=== PATIENT | female | born 1940 | race Caucasian/White ===

== ENCOUNTER 2017-01-04 15:17 | Emergency (ER) | payer MEDICARE ==
[2017-01-04 15:37] VITALS: BP 145/82
--- NOTE | 2017-01-04 16:21 | UC ---
Lower Extremity/Ankle HPI - HPI Summary HPI Summary: Patient presents with left lower leg abnormality with swelling of the left ankle with ecchymosis x 2 days after falling onto the leg 3 days ago. Denies hitting head or LOC. She notes to bruising over the left lower leg with medium size hematoma to the lateral leg. Denies other symptoms. Takes baby aspirin daily. - History of Current Complaint Chief Complaint: UCLowerExtremity Stated Complaint: LEFT FOOT/LEG PAIN & SWELLING Time Seen by Provider: 01/04/17 15:43 Hx Obtained From: Patient ?: No Onset/Duration: Sudden Onset Severity Initially: Mild Severity Currently: Mild Pain Intensity: 0 Pain Scale Used: 0-10 Numeric Aggravating Factor(s): Nothing Alleviating Factor(s): Rest, Elevation, Ice Able to Bear Weight: Yes - Risk Factors Gout Risk Factors: Negative DVT Risk Factors: Negative Septic Arthritis Risk Factor: Negative - Allergies/Home Medications Allergies/Adverse Reactions: Allergies Allergy/AdvReac Type Severity Reaction Status Date / Time No Known Allergies Allergy Verified 01/04/17 15:27 PMH/Surg Hx/FS Hx/Imm Hx Previously Healthy: Yes - Surgical History Surgical History: Yes Surgery Procedure, Year, and Place: BREAST REDUCTION. Left colectomy - Family History Known Family History: Positive: Unknown - Social History Occupation: Unemployed Lives: With Family Alcohol Use: Occasionally Substance Use Type: None Smoking Status (MU): Never Smoked Tobacco - Immunization History Most Recent Influenza Vaccination: NONE 2015 Most Recent Tetanus Shot: UTD Most Recent Pneumonia Vaccination: NEVER Review of Systems Constitutional: Negative Skin: Bruising Eyes: Negative Respiratory: Negative Cardiovascular: Negative Motor: Negative Neurovascular: Negative Musculoskeletal: Edema, Myalgia Neurological: Negative Psychological: Negative All Other Systems Reviewed And Are Negative: Yes Physical Exam Triage Information Reviewed: Yes Appearance: Well-Appearing, No Pain Distress, Well-Nourished Vital Signs: Initial Vital Signs Temp 99.2 F 01/04/17 15:28 Pulse 74 01/04/17 15:28 Resp 16 01/04/17 15:28 BP 145/82 01/04/17 15:28 Pulse Ox 97 01/04/17 15:28 Vital Signs Reviewed: Yes Eye Exam: Normal Neck exam: Normal Neck: Positive: Supple Respiratory Exam: Normal Respiratory: Positive: Chest non-tender, Lungs clear Cardiovascular Exam: Normal Cardiovascular: Positive: RRR Neurological Exam: Normal Neurological: Positive: Alert Psychological: Positive: Normal Response To Family, Age Appropriate Behavior Skin: Positive: Other - ecchymosis Lower Extremity Course/Dx - Differential Dx/Diagnosis Differential Diagnosis/HQI/PQRI: Contusion, DVT, Infection, Strain, Tendonitis Provider Diagnoses: Hematoma of Left lower leg Discharge - Discharge Plan Condition: Stable Disposition: HOME Patient Education Materials: Hematoma (ED) Referrals: Juan David Roldan MD [Medical Doctor] - Anne-Marie Colin MD [Primary Care Provider] - Additional Instructions: Follow up with Dr. Roldan office tomorrow. Keep Johann wrap on until visit.
== END 2017-01-04 16:05 | disposition home or self-care (01) ==
LOC: UCCORT 15:17
DX: S80.12XA Contusion of left lower leg, initial encounter (principal); W18.30XA Fall on same level, unspecified, initial encounter; Y93.9 Activity, unspecified; Y92.9 Unspecified place or not applicable; Y99.9 Unspecified external cause status
CPT/HCPCS: 99211; G0463

== ENCOUNTER 2017-08-07 11:35 | Emergency (ER) | payer MEDICARE ==
[2017-08-07 13:30] VITALS: BP 126/77
--- NOTE | 2017-08-07 14:12 | UC ---
Respiratory Complaint HPI - HPI Summary HPI Summary: Pt c/o nasal congestion, cough, sob with exertion and generalized malaise X 1 week. - History of Current Complaint Chief Complaint: UCRespiratory Stated Complaint: COUGH Time Seen by Provider: 08/07/17 13:25 Hx Obtained From: Patient ?: No Onset/Duration: Gradual Onset, Lasting Weeks - 1 Timing: Constant Severity Initially: Mild Severity Currently: Mild Pain Intensity: 0 Character: Cough: Nonproductive Aggravating Factors: Deep Breaths, Recumbent Position Alleviating Factors: Nothing Associated Signs And Symptoms: Positive: Chills, URI, Nasal Congestion, Hoarseness - Risk Factors Pulmonary Embolism Risk Factors: Negative Cardiac Risk Factors: Negative Pseudomonas Risk Factors: Negative Tuberculosis Risk Factors: Negative - Allergies/Home Medications Allergies/Adverse Reactions: Allergies Allergy/AdvReac Type Severity Reaction Status Date / Time No Known Allergies Allergy Verified 08/07/17 13:26 PMH/Surg Hx/FS Hx/Imm Hx Previously Healthy: Yes - Surgical History Surgical History: Yes Surgery Procedure, Year, and Place: BREAST REDUCTION. Left colectomy - Family History Known Family History: Positive: Unknown - Social History Occupation: Employed Part-time Lives: With Family Alcohol Use: Occasionally Substance Use Type: None Smoking Status (MU): Never Smoked Tobacco Have You Smoked in the Last Year: No - Immunization History Most Recent Influenza Vaccination: NONE 2015 Most Recent Tetanus Shot: UTD Most Recent Pneumonia Vaccination: NEVER Review of Systems Constitutional: Chills, Fatigue Skin: Negative Eyes: Negative ENT: Sinus Congestion Respiratory: Shortness Of Breath, Cough Cardiovascular: Negative Gastrointestinal: Negative Genitourinary: Negative Motor: Negative Neurovascular: Negative Musculoskeletal: Myalgia Neurological: Negative Psychological: Negative Is Patient Immunocompromised?: No All Other Systems Reviewed And Are Negative: Yes Physical Exam Triage Information Reviewed: Yes Appearance: Ill-Appearing Vital Signs: Initial Vital Signs Temp 99.7 F 08/07/17 13:27 Pulse 76 08/07/17 13:27 Resp 20 08/07/17 13:27 BP 126/77 08/07/17 13:27 Pulse Ox 96 08/07/17 13:27 Vital Signs Reviewed: Yes Eye Exam: Normal ENT Exam: Other ENT: Positive: Nasal congestion Dental Exam: Normal Neck exam: Normal Respiratory Exam: Other Respiratory: Positive: Wheezing Cardiovascular Exam: Normal Abdominal Exam: Normal Musculoskeletal Exam: Normal Neurological Exam: Normal Psychological Exam: Normal Skin Exam: Normal UC Diagnostic Evaluation - Laboratory O2 Sat by Pulse Oximetry: 96 Diagnostic Studies Comment: rapid influenza negative for both A & B - Radiology Radiology Interpretation Completed By: Radiologist - NO active pulmonary disease Respiratory Course/Dx - Course Course Of Treatment: Other: None. IMPRESSION: NO ACTIVE DISEASE. - Differential Dx/Diagnosis Differential Diagnosis/HQI/PQRI: Bronchitis, Influenza Provider Diagnoses: Bronchitis Discharge - Discharge Plan Condition: Stable Disposition: HOME Prescriptions: Benzonatate CAP* [Tessalon 100 MG CAP*] 100 mg PO Q8H PRN #30 cap PRN Reason: Cough DOXYcycline CAP(*) [DOXYcycline 100MG CAP(*)] 100 mg PO Q12H #20 cap predniSONE TAB* [Deltasone TAB*] 30 mg PO DAILY #9 tab Patient Education Materials: Acute Bronchitis (ED) Referrals: Anne-Marie Colin MD [Primary Care Provider] - If Needed Additional Instructions: Please follow up with your PCP or return to clinic as needed. Please follow up with your PCP to get an influenza vaccine in 5-10 days.
--- NOTE | 2017-08-07 14:45 | RAD ---
INDICATION: Cough. Short of breath COMPARISON: March 19, 2015 TECHNIQUE: PA and lateral dual-energy views were obtained. FINDINGS: Bones/Soft Tissues: There are no acute bony findings. There is osteopenia with kyphosis Cardiomediastinal: The cardiomediastinal silhouette is normal. Lungs: There are no infiltrates. Pleura: There are no pleural effusions. Other: None IMPRESSION: NO ACTIVE DISEASE.
== END 2017-08-07 15:02 | disposition home or self-care (01) ==
LOC: UCCORT 11:35
DX: J40 Bronchitis, not specified as acute or chronic (principal)
CPT/HCPCS: 71046; 87502; 99212; G0463

== ENCOUNTER 2018-05-28 14:35 | Emergency (ER) | payer MEDICARE ==
[2018-05-28 15:28] VITALS: BP 162/77
--- NOTE | 2018-05-28 15:42 | UC ---
Abdominal Pain Female HPI - HPI Summary HPI Summary: C/O abdominal pain starting today. LLQ, worsening since onset. H/O diverticulitis. Diarrhea x 1 week\. No blood or mucus in the stool. No fevers sweats or chills. - History of Current Complaint Chief Complaint: UCAbdominalPain Stated Complaint: STOMACH ACHE Time Seen by Provider: 05/28/18 15:34 Hx Obtained From: Patient Onset/Duration: Sudden Onset, Lasting Days - 1, Worse Since - onset Severity Initially: Mild Severity Currently: Moderate Pain Intensity: 4 Location: Discrete At: LUQ, Discrete At: LLQ Radiates: No Character: Aching, Dull Aggravating Factor(s): Nothing Alleviating Factor(s): Nothing Associated Signs and Symptoms: Positive: Decreased Appetite, Nausea, Diarrhea. Negative: Fever, Vomiting Allergies/Adverse Reactions: Allergies Allergy/AdvReac Type Severity Reaction Status Date / Time mirabegron [From Pixlee] Allergy Severe lip and Verified 05/28/18 15:17 facial swelling Home Medications: Home Medications Aspirin 81 mg CHEW TAB* 81 mg PO EVERY OTHER DAY 05/28/18 [History Confirmed ] PMH/Surg Hx/FS Hx/Imm Hx Endocrine History: Dyslipidemia GI/ History: Diverticulitis - Surgical History Surgical History: Yes Surgery Procedure, Year, and Place: BREAST REDUCTION. Left colectomy - Family History Known Family History: Positive: Unknown Negative: Diabetes - Social History Occupation: Retired Lives: With Family Alcohol Use: Occasionally Substance Use Type: None Smoking Status (MU): Never Smoked Tobacco Have You Smoked in the Last Year: No - Immunization History Most Recent Influenza Vaccination: NONE 2015 Most Recent Tetanus Shot: UTD Most Recent Pneumonia Vaccination: NEVER Review of Systems All Other Systems Reviewed And Are Negative: Yes Gastrointestinal: Positive: Abdominal Pain, Diarrhea, Nausea Is Patient Immunocompromised?: No Physical Exam Triage Information Reviewed: Yes Appearance: Well-Appearing, No Pain Distress, Well-Nourished Vital Signs: Initial Vital Signs Temp 98.6 F 05/28/18 15:20 Pulse 72 05/28/18 15:20 Resp 24 05/28/18 15:20 BP 162/77 05/28/18 15:20 Pulse Ox 99 05/28/18 15:20 Vital Signs Reviewed: Yes Eyes: Positive: Conjunctiva Clear ENT: Positive: Pharynx normal, TMs normal Neck exam: Normal Respiratory Exam: Normal Cardiovascular Exam: Normal Abdomen Description: Positive: No Organomegaly, Soft. Negative: Nontender - tender LUQ, McBurney's Point Tenderness, Peritoneal Signs Musculoskeletal Exam: Normal Neurological Exam: Normal Psychological Exam: Normal Skin Exam: Normal Abd Pain Female Course/Dx - Differential Dx/Diagnosis Differential Diagnosis: Appendicitis, Constipation, Diverticulitis, Urinary Tract Infection Provider Diagnoses: Acute diverticulitis, large intestine. Diarrhea Discharge - Sign-Out/Discharge Documenting (check all that apply): Patient Departure All imaging exams completed and their final reports reviewed: No Studies - Discharge Plan Condition: Stable Disposition: HOME Prescriptions: metroNIDAZOLE [Flagyl 500 MG TAB] 500 mg PO TID #30 tab Sulfamethox/Trimethoprim DS* [Bactrim DS 800/160 TAB*] 1 tab PO BID #20 tab Patient Education Materials: Diverticulitis (ED), Sulfamethoxazole/ Trimethoprim (By mouth), Metronidazole (By mouth) Referrals: Anne-Marie Colin MD [Primary Care Provider] - Additional Instructions: If getting worse pain, especially with fevers, go to the ER. - Billing Disposition and Condition Condition: STABLE Disposition: Home
== END 2018-05-28 16:08 | disposition home or self-care (01) ==
LOC: UCCORT 14:35
DX: K57.92 Diverticulitis of intestine, part unspecified, without perforation or abscess without bleeding (principal); R19.7 Diarrhea, unspecified; Z88.8 Allergy status to other drugs, medicaments and biological substances; Z79.82 Long term (current) use of aspirin
CPT/HCPCS: 99212; G0463

== ENCOUNTER 2019-08-16 09:02 | Emergency (ER) | payer MEDICARE ==
--- OUTSIDE RECORDS SUMMARY | 2019-08-16 09:54 | XMS REPORT | Continuity of Care Document ---
:1940 External Reference #:[id number] Author Name Zara Jung NP (transmitted by agent of provider Marilyn Forbes) Address [address] [place] [id number] Care Team Providers Name Role Phone Kaveh Holliday M.D Care Team Information Hotel Service Supervisor [phone] Cony Basilio MD - Family Care Team Information Hotel Service Supervisor [phone] Medicine Problems Active Problems Provider Date Hearing loss Tank Gregorio M.D. Onset: 08/01/2013 Dysfunction of eustachian tube Tank Gregorio M.D. Onset: 08/01/2013 Deviated nasal septum Tank Gregorio M.D. Onset: 08/01/2013 Sore throat symptom Tank Gregorio M.D. Onset: 08/01/2013 Social History Type Date Description Comments Sex Unknown Tobacco Use Start: Unknown Never Smoked Cigarettes Smoking Status Reviewed: 04/19/19 Never Smoked Cigarettes ETOH Use Current Alcohol Use - 1-3 Days A Week. Recreational Drug Use Never Used Drugs Allergies, Adverse Reactions, Alerts Description No Known Drug Allergies Medications Active Medications SIG Qnty Indications Ordering Provider Date Simvastatin 1 by mouth every Unknown 20mg Tablets day Aspirin 81 Low Dose once a day Unknown 81mg Chewtabs Immunizations Description No Information Available Vital Signs Date Vital Result Comment 07/30/2019 10:56am Weight 130.00 lb Height 62 inches 5'2" BMI (Body Mass Index) 23.8 kg/m2 BP Systolic 132 mmHg BP Diastolic 75 mmHg Heart Rate 58 /min O2 % BldC Oximetry 98 % Body Temperature 97.8 F [place] Score 2 Pain Level 0 05/29/2019 3:47pm Weight 129.00 lb Height 62 inches 5'2" BMI (Body Mass Index) 23.6 kg/m2 BP Systolic 136 mmHg BP Diastolic 85 mmHg Heart Rate 75 /min O2 % BldC Oximetry 96 % Body Temperature 96.4 F Pain Level 0 Results Description No Information Available Procedures Date Code Description Status 04/25/2019 43627 Sleep Staging 4Or More Para Completed Medical Devices Description No Information Available Encounters Type Date Location Provider Dx Diagnosis Office Visit 05/29/2019 Main Office Tank Gregorio M.D. 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 (pediatric) 05/10/2019 G47.33 Obstructive sleep apnea (adult) Zara Jung NP (pediatric) 05/10/2019 H93.A3 Pulsatile tinnitus, bilateral Zara Jugn NP 04/25/2019 G47.33 Obstructive sleep apnea (adult) Sleep Lab - Thomas Bettencourt MD (pediatric) 04/19/2019 R06.83 Snoring Thomas Bettencourt M.D Plan of Treatment No Information Available Functional Status Description No Information Available Mental Status Description No Information Available Referrals Description No Information Available
--- OUTSIDE RECORDS SUMMARY | 2019-08-16 09:54 | XMS REPORT | Continuity of Care Document ---
:1940 External Reference #:[id number] Author Name Aris Ramírez M.D. (transmitted by agent of provider Abelardo Bolaños) Address [address] [place] [id number] Care Team Providers Name Role Phone Susan Pennington M.D. - Internal Care Team Information Ventilating Engineer [phone] Medicine Problems Description No Information Available Social History Type Date Description Comments Sex Unknown Tobacco Use Start: Unknown Never Smoked Cigarettes Tobacco Use Start: Unknown Never Smoked Cigars Tobacco Use Start: Unknown Never Smoked A Pipe Smoking Status Reviewed: 07/02/19 Never Smoked A Pipe Smokeless Tobacco Never Used Smokeless Tobacco ETOH Use Occasionally consumes alcohol Tobacco Use Start: Unknown Patient has never smoked Recreational Drug Use Denies Drug Use Exercise Type/Frequency Exercises regularly Allergies, Adverse Reactions, Alerts Active Allergies Reaction Severity Comments Date Myrbetriq 06/25/2019 Inactive Allergies NKDA 06/15/2012 Medications Active Medications SIG Qnty Indications Ordering Date Provider Simvastatin 1 po every other 100tabs White, 20mg day at MD Anne-Marie Tablets bedtime-every day per pt Aspirin Ec Lo-Dose 1 tablet every 90tabs White, 81mg other day MD Anne-Marie Tablets DR Propafenone HCL 2 tabs by mouth as Unknown 300mg needed Tablets Metamucil 1 tablespoon in Unknown 28.3% Powder liquid daily Acetaminophen Extra 1 tab by mouth Unknown Strength every 8 hours as 500mg Tablets needed for pain or fever Combination 1 drop in right Unknown Antibiotic= 3 eye three times Diferent Meds daily Included Immunizations Description No Information Available Vital Signs Date Vital Result Comment 07/02/2019 10:38am Height 58.50 inches 4'10.50" Weight 128.00 lb Heart Rate 67 /min BP Systolic Sitting 134 mmHg BP Diastolic Sitting 86 mmHg Respiratory Rate 20 /min Pain Level 0 O2 % BldC Oximetry 97 % BMI (Body Mass Index) 26.3 kg/m2 02/14/2017 1:03pm Height 59 inches 4'11" Weight 125.00 lb Heart Rate 60 /min BP Systolic Sitting 120 mmHg BP Diastolic Sitting 80 mmHg Respiratory Rate 12 /min Pain Level 0 BMI (Body Mass Index) 25.2 kg/m2 Results Description No Information Available Procedures Description No Information Available Medical Devices Description No Information Available Encounters Description No Information Available Assessments Description No Information Available Plan of Treatment 02/14/2017 - Juan David Roldan, MDS80.12xD Contusion of left lower leg, subsequent encounterFollow up:Follow up: As needed Functional Status Description No Information Available Mental Status Description No Information Available Referrals Description No Information Available
--- OUTSIDE RECORDS SUMMARY | 2019-08-16 09:54 | XMS REPORT | Continuity of Care Document ---
:1940 External Reference #:[id number] Author Name Zara Jung NP Address [address] [place] [address] Care Team Providers Name Role Phone Kaveh Holliday M.D Care Team Information Novelty Maker [phone] Coyn Basilio MD - Family Care Team Information Novelty Maker Medicine Problems Active Problems Provider Date Hearing [...] Oximetry 98 % Body Temperature 97.8 F [place] Score 2 Pain Level 0 05/29/2019 3:47pm Weight 129.00 lb Height 62 inches 5'2" BMI (Body Mass Index) 23.6 kg/m2 BP Systolic 136 mmHg BP Diastolic 85 mmHg Heart Rate 75 /min O2 % BldC Oximetry 96 % Body Temperature 96.4 F Pain Level 0 Results Description No Information Available Procedures Date Code Description Status 04/25/2019 04213 Sleep Staging 4Or More Para Completed Medical Devices Description No Information Available Encounters Type Date Location Provider Dx Diagnosis Office Visit 07/30/2019 Main Office Zara Jung G47.33 Obstructive sleep 10:45a [employer] apnea (adult) (pediatric) K13.79 Other lesions of oral mucosa Office Visit 05/29/2019 3:45p Main Office Tank Gregorio G47Lu Obstructive sleep Jacey apnea (adult) (pediatric) Office Visit 05/10/2019 10:15a Main Office Zara Trujillo G47.33 Obstructive sleep AURELIO Jung apnea (adult) (pediatric) 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 (pediatric) 05/10/2019 G47.33 Obstructive sleep apnea (adult) Zara Jung NP (pediatric) 05/10/2019 H93.A3 Pulsatile tinnitus, bilateral Zara Jung NP 04/25/2019 G47.33 Obstructive sleep apnea (adult) Sleep Lab - Thomas Bettencourt MD (pediatric) 04/19/2019 R06.83 Snoring Thomas Bettencourt M.D Plan of Treatment Future Appointment(s):10/01/2019 1:15 pm - Zara Jung NP at Main Office Functional Status Description No Information Available Mental Status Description No Information Available Referrals Description No Information Available
[2019-08-16 10:05] VITALS: BP 126/76
--- NOTE | 2019-08-16 10:05 | UC ---
Respiratory Complaint HPI - HPI Summary HPI Summary: 79 y/o female presents to the urgent care c/o dry cough worsening for 4-5 days. Pt reports symptoms started w/ a common cold w/nasal congestion and clear nasal discharge. Now cough is becoming productive and she hasn't been able to sleep well do to cough despite taking OTC medication: Tylenol, Guafenesin etc. Pt denies fever, SOB, wheezing, chest pain, abdominal pain, N/V/D, RODRIGUEZ or neck pain. Pt denies smoking. - History of Current Complaint Stated Complaint: COUGH Time Seen by Provider: 08/16/19 10:04 Hx Obtained From: Patient ?: No Onset/Duration: Gradual Onset, Lasting Days - 5 days, Still Present, Worse Since - at night time Timing: Intermittent Episodes Severity Initially: Mild Severity Currently: Mild Pain Intensity: 0 Pain Scale Used: 0-10 Numeric Character: Cough: Nonproductive Aggravating Factors: Recumbent Position Alleviating Factors: OTC Meds Associated Signs And Symptoms: Positive: URI, Nasal Congestion. Negative: Dyspnea, Fever, Chills, Wheezing - Risk Factors Pulmonary Embolism Risk Factors: Negative Cardiac Risk Factors: Negative Pseudomonas Risk Factors: Negative Tuberculosis Risk Factors: Negative - Allergies/Home Medications Allergies/Adverse Reactions: Allergies Allergy/AdvReac Type Severity Reaction Status Date / Time mirabegron [From Myrbetriq] Allergy Severe lip and Verified 08/16/19 10:05 facial swelling PMH/Surg Hx/FS Hx/Imm Hx Previously Healthy: Yes Endocrine History: Dyslipidemia - Surgical History Surgical History: Yes Surgery Procedure, Year, and Place: BREAST REDUCTION. Left colectomy - Family History Known Family History: Positive: Cardiac Disease Negative: Diabetes - Social History Occupation: Retired Lives: With Family Alcohol Use: Occasionally Substance Use Type: None Smoking Status (MU): Never Smoked Tobacco Have You Smoked in the Last Year: No - Immunization History Most Recent Influenza Vaccination: NONE 2015 Most Recent Tetanus Shot: UTD Most Recent Pneumonia Vaccination: NEVER Review of Systems All Other Systems Reviewed And Are Negative: Yes Constitutional: Positive: Negative Skin: Positive: Negative Eyes: Positive: Negative ENT: Positive: Nasal Discharge - clear, Sinus Congestion, Other - PND Respiratory: Positive: Cough - productive cough w/ clear sputum Cardiovascular: Positive: Negative Gastrointestinal: Positive: Negative Genitourinary: Positive: Negative Motor: Positive: Negative Neurovascular: Positive: Negative Neurological: Positive: Negative Psychological: Positive: Negative Is Patient Immunocompromised?: No Physical Exam - Summary Physical Exam Summary: Vital Signs Reviewed: Yes General: well developed, well nourished female sitting in the examining table w/ o any apparent distress Eyes: Positive: Conjunctiva Clear - PERRLA, EOMI, fundi grossly normal ENT: Positive: Normal ENT inspection, Hearing grossly normal, Pharynx normal, Nasal congestion - edematous and erythematous nasal mucosa, Nasal drainage - yellowish drainage, TMs normal. Negative: Tonsillar swelling, Tonsillar exudate Neck: Positive: Supple, Nontender, No Lymphadenopathy Respiratory: no orthopnea or dyspnea. Able to speak in full sentences, no retractions or accessory muscle use, no tripod position, stridor, or head bobbing. Positive breath sounds bilaterally. Mild diffuse scattered rhonchi on b/L lungs, no wheezing, no crackles or rales. Cardiovascular: Positive: RRR, No Murmur, Pulses Normal, Brisk Capillary Refill Abdomen Description: Positive: Nontender, No Organomegaly, Soft. Negative: CVA Tenderness (R), CVA Tenderness (L) Bowel Sounds: Positive: Present Musculoskeletal Exam: Normal Musculoskeletal: Positive: Strength Intact, ROM Intact, No Edema Neurological Exam: Normal Psychological Exam: Normal Skin Exam: Normal Triage Information Reviewed: Yes Respiratory Course/Dx - Course Course Of Treatment: 79 y/o female presents to the urgent care c/o dry cough worsening for 4-5 days. Pt reports symptoms started w/ a common cold w/nasal congestion and clear nasal discharge. Now cough is becoming productive and she hasn't been able to sleep well do to cough despite taking OTC medication: Tylenol, Guafenesin etc. Pt denies fever, SOB, wheezing, chest pain, abdominal pain, N/V/D, RODRIGUEZ or neck pain. Pt denies smoking. Hx obtained. Pt w/ mild scattered rhochi on b/L lungs , no crackles or rales. O2Sat: 99%. Rapid Influenza A&B: negative. Chest X-ray ordered to r/o pneumonia: IMPRESSION: HYPERINFLATION, CONSISTENT WITH COPD. NO ACTIVE CARDIOPULMONARY DISEASE. Pt w/ acute bronchitis. Patient prescribed Tessalon Tabs PO and advised on symptomatic treatment. The patient was recommended to increase fluid intake. Pt advised to return to the clinic or f/u w/ PCP if symptoms do not improve. All D/C instructions explained. Patient understood and agree w/ plan of care. Pt left clinic hemodynamically stable , A& OX3 - Differential Dx/Diagnosis Differential Diagnosis/HQI/PQRI: Asthma, Bronchitis, Exacerbation Of COPD, Influenza, Lower Resp Infection, Sinusitis, Other - pnumonia Provider Diagnosis: Acute bronchitis Discharge ED - Sign-Out/Discharge Documenting (check all that apply): Patient Departure - D/C home All imaging exams completed and their final reports reviewed: Yes - Discharge Plan Condition: Stable Disposition: HOME Prescriptions: Benzonatate CAP* [Tessalon 100 MG CAP*] 100 mg PO TID PRN #[id number] cap PRN Reason: Cough Patient Education Materials: Acute Bronchitis (ED) Referrals: Cony Basilio MD [Primary Care Provider] - 2 Days Additional Instructions: 1-Take Tessalon PO tabs as directed and use the albuterol inhaler to alleviate cough. Increase fluid intake, rest and eat well. 2- Use saline drops to clear your sinus as directed. 3- If symptoms do not improve or worsen or your develop SOB with fever and severe wheezing please go immediately to the ER further evaluation and treatment. 4- F/u with your PCP in 2-3 days for further management . - Billing Disposition and Condition Condition: STABLE Disposition: Home - Attestation Statements Provider Attestation: I was available for consult. This patient was seen by the MARYBETH. The patient was not presented to, seen by, or examined by me. -Skyler
[2019-08-16 10:30] LABS: Influenza A Molecular Negative (Negative); Influenza B Molecular Negative (Negative)
== END 2019-08-16 11:10 | disposition home or self-care (01) ==
LOC: UCCORT 09:02
DX: J20.9 Acute bronchitis, unspecified (principal); R91.8 Other nonspecific abnormal finding of lung field; Z88.8 Allergy status to other drugs, medicaments and biological substances
CPT/HCPCS: 71046; 99212; G0463